=== PATIENT | male | born 2000 | race Hispanic/Latino ===

== ENCOUNTER 2018-08-01 20:11 | Emergency (ER) | payer OTHER ==
[~2018-08-01] VITALS: Ht 177.8 cm; Wt 100.0 kg
[2018-08-01] MEDS ORDERED: CEPHALEXIN 500 MG CAP PO ONE (22:15)
[2018-08-01] MEDS ORDERED: KEFL500C17 PO (22:17)
[2018-08-01 22:21] VITALS: BP 136/76
== END 2018-08-01 22:23 | disposition home or self-care (01) ==
LOC: M ED 20:11
DX: S31.25XA Open bite of penis, initial encounter (principal); W54.0XXA Bitten by dog, initial encounter; Y92.89 Other specified places as the place of occurrence of the external cause; R30.0 Dysuria

== ENCOUNTER → 2018-09-01 | Outpatient (CLI) | payer OTHER ==
[~2018-09-01] MED LIST: KEFL500C17 PO
--- NOTE | 2018-09-01 15:51 | REP ---
TRIPLE PHASE BONE SCAN LOWER LEGS: Following the intravenous administration of 21.6 mCi of technetium 99m MDP, the patient's lower legs are imaged in the flow phase in the anterior and posterior projections. There is no asymmetric blood flow. Immediate blood pool and three-hour delayed images are performed of the lower legs in multiple projections. There is no abnormal blood pooling. Delayed images show linear increased uptake along the tibial shafts bilaterally both anteriorly and posteriorly compatible with bilateral stress periostitis or anderson splints. There is focal increased uptake in the distal third of the right tibia posteromedially suggesting a small stress fracture at that location. Electronically Signed by Herman Marsh MD 09/01/2018 04:02 P
== END ==
LOC: M RAD 10:32
DX: M79.661 Pain in right lower leg (principal)
CPT/HCPCS: 78315; A9503

== ENCOUNTER 2019-07-07 02:24 | Emergency (ER) | payer OTHER ==
[2019-07-07 03:15] LABS: AMPHETAMINES LEVEL URINE NEGATIVE (NEGATIVE); BARBITURATES URINE NEGATIVE (NEGATIVE); BENZODIAZEPINES URINE NEGATIVE (NEGATIVE); CANNABINOIDS URINE NEGATIVE (NEGATIVE); COCAINE METABOLITE URINE NEGATIVE (NEGATIVE); METHADONE URINE NEGATIVE (NEGATIVE); OPIATES URINE NEGATIVE (NEGATIVE); PHENCYCLIDINE URINE NEGATIVE (NEGATIVE)
[2019-07-07] MEDS ORDERED: LORazepam 2 MG/ML VIAL (J2060) IM STA (03:58)
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
[2019-07-07 05:30] VITALS: BP 139/65
== END 2019-07-07 05:37 | disposition home or self-care (01) ==
LOC: M ED 02:24
DX: S00.83XA Contusion of other part of head, initial encounter (principal); Y04.0XXA Assault by unarmed brawl or fight, initial encounter; Y92.59 Other trade areas as the place of occurrence of the external cause; Y93.89 Activity, other specified; Y99.8 Other external cause status; F10.10 Alcohol abuse, uncomplicated
CPT/HCPCS: 70450; 70486; 72125; 80307; 96372; 99285; J2060